=== PATIENT | female | born 1960 | race Caucasian/White ===

== ENCOUNTER → 2018-02-19 | Outpatient (CLI) | payer OTHER ==
[2018-02-19 12:58] LABS: T4, Free (Free Thyroxine) 0.95 ng/dL (0.78-2.19)
== END | disposition home or self-care (01) ==
LOC: LABWHC1 11:36 → MERGE 11:36
PROVIDERS: ATTEND Otolaryngology
DX: E04.1 Nontoxic single thyroid nodule (principal)
CPT/HCPCS: 36415; 84439; 84443; 86376

== ENCOUNTER 2018-03-02 12:41 | Day surgery (SDC) | payer OTHER ==
[2018-03-02 13:14] VITALS: PULSE 62; TEMP 97.6
--- NOTE | 2018-03-02 13:30 | US ---
EXAMINATION TYPE: US thyroid st tissue head/neck DATE OF EXAM: 03/02/2018 COMPARISON: NONE CLINICAL HISTORY: E.04.1 Thyroid. Right sided nodule GLAND SIZE: Right Lobe: 4.7 x 1.8 x 1.4 cm Overall Parenchyma: homogenous Left Lobe: 2.9 x 0.6 x 1.0 cm Overall Parenchyma: homogeneous Isthmus Thickness: 0.2 cm NODULES RIGHT: # of nodules measured on right: 1 1. 1.6 X 1.7 x 1.2 cm hypoechoic solid nodule at the mid pole with well-defined margins. This nodu le is wider than tall and shows intranodular vascularity. Prior size: RECYCLING SPECIALIST LEFT: # of nodules measured on left: 1 1. 0.8 X 0.4 x 0.4 cm hypoechoic solid nodule at the mid pole with well-defined margins. This nodu le is wider than tall and shows intranodular vascularity. Prior size: RECYCLING SPECIALIST ISTHMUS: # of nodules measured in the isthmus: 0 Bilateral neck scanned, no evidence of lymphadenopathy. IMPRESSION: Bilateral thyroid nodules with the largest nodule noted on the right measuring 1.7 cm.
[2018-03-02 14:03] VITALS: BP 131/88; RESP 14
--- NOTE | 2018-03-02 15:58 | US ---
ULTRASOUND GUIDED FNA THYROID BIOPSY: CLINICAL HISTORY: Right thyroid nodule FINDINGS: The procedure was explained to the patient. The risks, complications, benefits and alternatives were discussed and any questions were answered. Informed consent was obtained. Patient was placed supin e on the ultrasound table and prepped and draped in the usual sterile fashion. Utilizing a 25 gauge needle, five passes were made into the requested right thyroid nodule. Patient was stable throughout the procedure. Pathology is pending. All elements of maximal barrier technique were utilized. IMPRESSION: 1. Successful ultrasound guided FNA thyroid biopsy.
== END 2018-03-02 14:07 | disposition home or self-care (01) ==
LOC: RADPROMAIN 12:41
PROVIDERS: ATTEND Otolaryngology
DX: E04.2 Nontoxic multinodular goiter (principal)
CPT/HCPCS: 10022; 76536; 76942; 88173; 88305

== ENCOUNTER 2018-04-19 08:11 | Day surgery (SDC) | payer OTHER ==
[2018-04-16 08:38] VITALS: BMI 17.4
[~2018-04-19 08:11] MED LIST: DEXAMETHASONE SOD PHOSPHATE 10 MG/ML 1 ML VIAL IV ONE; DEXAMETHASONE SOD PHOSPHATE 4 MG/ML 1 ML VIAL IV ONE; FAMOTIDINE 20 MG/2 ML VIAL IV ONE; HYDROmorphone 0.5 MG/0.5 ML SYRINGE IVP PRN; LACTATED RINGERS 1,000 ML IV SCH; MIDAZOLAM 2 MG/2 ML VIAL IV PRN; MORPHINE SULFATE 4 MG/ML SYRINGE IV PRN; ONDANSETRON 4 MG/2 ML VIAL IVP ONE; ceFAZolin 1,000 MG in DEXTROSE/WATER 1 50ML.BAG IV ONE
[2018-04-19] MEDS: OXYMETAZOLINE 0.05% NASL SPRAY 1 SPRAY BOTTLE NASAL ONE ×4 (08:55→09:22)
[2018-04-19 09:08] VITALS: RESP 16
[2018-04-19] MEDS ORDERED: LIDOCAINE 1% 20 ML VIAL (10MG/ML) FOR IV START INTRADERMA ONE (09:08)
[2018-04-19] MEDS: ONDANSETRON 4 MG/2 ML VIAL IVP ONE ×2 (09:13→09:15)
[2018-04-19] MEDS ORDERED: CIPROFLOXACIN-DEXAMETH 0.3-0.1% DROPS 7.5 ML BTL BOTH EARS ONE (09:52)
[2018-04-19] MEDS ORDERED: CIPROFLOXACIN-DEXAMETH 0.3-0.1% DROPS 7.5 ML BTL LEFT EAR ONE (09:52)
[2018-04-19] MEDS ORDERED: BUPIVACAINE (PF) 0.5% 30 ML VIAL SQ ONE ×2 (09:53)
[2018-04-19] MEDS ORDERED: LIDOCAINE 1%-EPI 1:100,000 20 ML VIAL SQ ONE ×3 (09:53)
[2018-04-19] MEDS ORDERED: fentaNYL (PF) 50 MCG/ML 2 ML AMP ONE (09:58)
[2018-04-19] MEDS ORDERED: DEXAMETHASONE SOD PHOS (MDV) 100 MG/10 ML VIAL ONE (09:58)
[2018-04-19] MEDS ORDERED: PROPOFOL 10 MG/ML 20 ML VIAL IV ONE (09:58)
[2018-04-19] MEDS ORDERED: LIDOCAINE 1% INJ 10MG/ML (20 ML MDV) ONE (09:58)
[2018-04-19] MEDS ORDERED: SUCCINYLCHOLINE CHLORIDE 100 MG/5 ML SYR IV ONE (09:58)
[2018-04-19] MEDS ORDERED: MIDAZOLAM 2 MG/2 ML VIAL ONE (09:58)
[2018-04-19 11:04] VITALS: TEMP 96.9
--- NOTE | 2018-04-19 11:13 | P.OP ---
Date of Procedure: 04/19/18 Preoperative Diagnosis: Chronic otitis media with effusion Right drumhead cholesteatoma Conductive hearing loss bilateral Eustachian tube dysfunction Bilateral inferior turbinate hypertrophy with obstruction Postoperative Diagnosis: Same Procedure(s) Performed: Bilateral direct microscopic tympanostomy and tube placement Right myringoplasty Bilateral submucosal resection of the inferior turbinates with outfracturing compression Bilateral endoscopic balloon eustachian tuboplasty Anesthesia: GETA Surgeon: Williams Jorgensen Estimated Blood Loss (ml): 5 Pathology: other (right drumhead cholesteatoma) Condition: stable Disposition: PACU Indications for Procedure: This patient presented to the office with persistent fullness to the right ear with bilateral eustachian tube dysfunction. She does have a persistent eustachian tube dysfunction on both sides but the right side was particularly bad with a [place] incudostapedial pexy. Intraoperatively we did discover a drumhead cholesteatoma that needed to be removed and we repaired this with a myringoplasty. Patient also has large obstructive inferior turbinates that were problematic. And the patient's persistent eustachian tube dysfunction was problematic. Operative Findings: Bilateral middle ear effusion with a right drumhead cholesteatoma with erosion. Patient had large obstructive inferior turbinates and obstructed eustachian tube orifices. Description of Procedure: Prior to surgery, all risks, benefits, and alternative therapies were discussed again with the patient and family. Risks of bleeding, need for second tubes, perforation, early extrusion of tubes, etc. etc. were explained. All questions were answered and a consent was obtained. This patient was taken to the operative room and placed in the supine position. Mask inhalation anesthesia was performed by the department of anesthesia. The patient was monitored throughout the entire case by the department of anesthesia. Both tympanic membranes were visualized with an operating Zeiss microscope. Cerumen and epithelial debris was removed from the external auditory canals bilaterally. The tympanic membranes were visualized under an operative microscope. The right tympanic membrane was severely adhesed to the incudostapedial joint. There was a drumhead cholesteatoma with adhesions noted. We remove the drumhead cholesteatoma there was growing deep under the annulus. This left a perforation. The drumhead was prepped and a graft was placed utilizing a bio design tympanoplasty graft. He was cut to size and placed as an overlay graft. Excellent fitting was obtained. Tympanostomy incisions were made inferiorly. Fluid was suctioned from the middle ear space with use of a #3 and #5 [place] suction with care to avoid any trauma to the middle ear structures. Ventilation tubes were then inserted bilaterally. Excellent placement was obtained. After the nose was decongested, the 0 Bustos star endoscope was inserted into both sides of the nose which extended to the nasopharynx. The eustachian tube orifices were visualized directly and found to be stenotic and inflamed. An Acclarent AERA the station too balloon dilation system device was inserted into both eustachian tube orifices and dilated in the standard fashion. The instrumentation was then removed and the patient tolerated this well. Eustachian tube orifice looked much more open and all adhesions were lysed. Attention was then paid to the inferior turbinates. The bilateral inferior turbinates were hypertrophic and obstructive. We entered the anterior portion of the inferior turbinates with use of a microdebrider. We remove bone and submucosal elements with use of a microdebrider bilaterally. The inferior turbinates underwent a submucosal resection with removal of submucosal tissue and bone. We obtained a much better and normal in size for breathing. The inferior turbinates were then outfractured and compressed with a Boyes nasal elevator. Excellent airway was obtained and was symmetric bilaterally. No bleeding was encountered. Patient was taken to postanesthesia recovery in excellent condition
[2018-04-19 12:12] VITALS: BP 120/81; PULSE 79
== END 2018-04-19 12:24 | disposition home or self-care (01) ==
LOC: OR 08:11
PROVIDERS: ATTEND Otolaryngology
DX: H65.493 Other chronic nonsuppurative otitis media, bilateral (principal); H71.91 Unspecified cholesteatoma, right ear; H90.0 Conductive hearing loss, bilateral; J34.3 Hypertrophy of nasal turbinates; H69.83 Other specified disorders of Eustachian tube, bilateral; Z79.2 Long term (current) use of antibiotics; Z79.899 Other long term (current) drug therapy; Z72.0 Tobacco use
CPT/HCPCS: 88304; 69436; 30140; 69949; C1763; C1726; J2250; J1100 ×2; J2405; J2001; J3010; J0690; J0330; J2704

== ENCOUNTER → 2024-10-07 | Outpatient (CLI) | payer OTHER ==
--- NOTE | 2024-10-12 22:41 | MM ---
Reason for Exam: Screening (asymptomatic). Last mammogram was performed 1 year(s) and 4 month(s) ago. Patient History: Menarche at age 20. First Full-Term at age 21. Postmenopausal. Risk Values: Sandrine 5 year model risk: 1.4%. NCI Lifetime model risk: 5.1%. Prior Study Comparison: 09/05/2019 Bilateral Screening Mammogram, Jeanie Hardy. 09/29/2021 Bilateral Screening Mammogram, Jeanie Hardy. 06/19/2023 Bilateral MG screening mammo w CAD, H. Tissue Density: The breasts are heterogeneously dense, which may obscure small masses. Findings: Analyzed By CAD. The pattern is symmetrical. No significant interval change. No suspicious groups of microcalcifications, spiculated or lobular masses, architectural distortion or other secondary signs of malignancy are mammographically apparent. Overall Assessment: Benign, BI-RAD 2 Management: Screening Mammogram of both breasts in 1 year. A negative mammogram report should not preclude additional follow up of suspicious palpable abnormalities. Patient should continue monthly self breast exam. A clinical breast exam by your physician is recommended on an annual basis and results should be correlated with mammographic findings. Note on Sandrine scores and lifetime risk: 1. A Sandrine score greater than 3% is considered moderate risk. If this is the case, consider specialist referral to assess eligibility for a risk reducing agent. 2. If overall lifetime risk for the development of breast cancer is 20% or higher, the patient may qualify for future screening with alternating mammogram and breast MRI. [facility], , 10/12/2024 10:37 PM. Electronically signed and approved by: Cristóbal Thomason D.O. Radiologis
== END | disposition home or self-care (01) ==
LOC: RADMAMWWP 07:28
PROVIDERS: ATTEND Obstetrics & Gynecology Obstetrics
DX: Z12.31 Encounter for screening mammogram for malignant neoplasm of breast (principal); R92.333 Mammographic heterogeneous density, bilateral breasts; Z78.0 Asymptomatic menopausal state
CPT/HCPCS: 77067

== ENCOUNTER → 2025-03-24 | Outpatient (CLI) | payer OTHER ==
--- NOTE | 2025-03-24 16:31 | CTL ---
EXAMINATION TYPE: CT Low Dose Lung DATE OF EXAM: 03/24/2025 12:29 PM COMPARISON: None. CLINICAL INDICATION: Female, 64 years old with history of Z122 SCREENING [id number] CURR SMOKER, currentl y vapes H/O nodules in bottom right lung, History of tobacco use. Current smoker with 30 pack-year hi story TECHNIQUE: Low dose computed tomography scan was performed through the chest at 1 mm thick sections a nd reconstructed images in multiple planes at 1 mm and [address] DLP: 40.5 mGycm, CT CTDI: 1.1 mGy, Automated exposure control for dose reduction was used. CT DIAGNOSTIC QUALITY: Satisfactory FINDINGS: 1.4 cm hypodense right thyroid lobe nodule can be further evaluated with thyroid ultrasound. Heart normal size. Trace anterior pericardial effusion. Proximal LAD coronary artery calcifications n oted. Ectatic ascending aorta 3.7 cm. Conventional arch vessel branching anatomy. No thoracic lymphadenopathy by CT size criteria. Some strandy atelectasis/scarring at the lower lungs. Additional right greater than left biapical ple ural parenchymal scarring. No consolidation or pleural effusion. * 4 mm lateral right upper lobe pulmonary nodule on axial image 70 * 4 mm anterior left midlung pulmonary nodule, axial image 110. * 5 mm left mid lung pulmonary nodule, axial image 147. Elongated fissural 7 mm pulmonary nodule lef t mid lung indicating a benign etiology, axial image 157. * 3 mm fissural left lower lung pulmonary nodule, axial image 190. * Right midlung pulmonary nodule measuring 6 mm, axial image 151. * 5 mm subpleural pulmonary nodule posteromedial right midlung, axial image 139. * A few scattered benign calcified granulomas, largest measuring 9 mm at the right lung base. There is a tiny hiatal hernia. Visualized upper abdomen otherwise shows no gross abnormality. Bones: Dextroconvex scoliosis thoracic spine. IMPRESSION: 1. LungRADS Category 3 (probably benign, 1-2% chance of malignancy); scattered 7 mm smaller pulmonary nodules on baseline screening. Additional evidence of prior granulomatous disease. 2. 1.5 cm right thyroid lobe nodule can be further evaluated with thyroid ultrasound. 3. Tiny hiatal hernia. Dextroconvex scoliosis. CT LUNG RAD AND CT CHEST RECOMMENDATION: Lung-Rad 3 Probably Benign: 6 month follow-up LDCT. S Modifier (other clinically significant findings): S, thyroid ultrasound for right-sided nodule as a pelon. Recommend smoking cessation. [facility], , 03/24/2025 4:29 PM
== END | disposition home or self-care (01) ==
LOC: RADCTMAIN 11:57
PROVIDERS: ATTEND Family Medicine
DX: Z12.2 Encounter for screening for malignant neoplasm of respiratory organs (principal); F17.210 Nicotine dependence, cigarettes, uncomplicated; K44.9 Diaphragmatic hernia without obstruction or gangrene; E04.1 Nontoxic single thyroid nodule; R91.8 Other nonspecific abnormal finding of lung field; M41.84 Other forms of scoliosis, thoracic region
CPT/HCPCS: 71271

== ENCOUNTER → 2025-06-04 | Outpatient (CLI) | payer OTHER ==
[2025-06-04 15:20] LABS: Basophils # (A) 0.03 X 10*3/uL (0.00-0.10); Basophils % (A) 0.4 %; Eosinophils # (A) 0.15 X 10*3/uL (0.04-0.35); Eosinophils % (A) 1.9 %; HCT 38.9 % (37.2-46.3); HGB 13.1 g/dL (12.0-15.0); Immature Grans, Automated 0.30 %; Lymphocytes # (A) 3.17 X 10*3/uL (0.90-5.00); Lymphocytes % (A) 41.0 %; MCH 30.9 pg (27.0-32.0); MCHC 33.7 g/dL (32.0-37.0); MCV 91.7 FL (80.0-97.0); Monocytes # (A) 0.67 X 10*3/uL (0.20-1.00); Monocytes % (A) 8.7 %; NRBC Per 100 WBC 0 X 10*3/uL (0.00-0.01); Neutrophils # (A) 3.70 X 10*3/uL (1.80-7.70); Neutrophils % (A) 47.7 %; Platelet Count 363 X 10*3/uL (140-440); RBC 4.24 X 10*6/uL (4.10-5.20); RDW 12.7 % (11.5-14.5); WBC 7.74 X 10*3/uL (4.50-10.00)
== END | disposition home or self-care (01) ==
LOC: LABPAT 09:24
PROVIDERS: ATTEND Obstetrics & Gynecology Obstetrics
DX: Z01.812 Encounter for preprocedural laboratory examination (principal)
CPT/HCPCS: 36415; 85025; 93005

== ENCOUNTER 2025-06-09 08:20 | Day surgery (SDC) | payer OTHER ==
[2025-06-05 09:13] VITALS: BMI 18.8
[~2025-06-09 08:20] MED LIST changes: -DEXAMETHASONE SOD PHOSPHATE 10 MG/ML 1 ML VIAL IV ONE; -DEXAMETHASONE SOD PHOSPHATE 4 MG/ML 1 ML VIAL IV ONE; -FAMOTIDINE 20 MG/2 ML VIAL IV ONE; -LACTATED RINGERS 1,000 ML IV SCH; +LIDOCAINE 1% (10MG/ML) FOR IV START INTRADERMA PRN; -MIDAZOLAM 2 MG/2 ML VIAL IV PRN; -MORPHINE SULFATE 4 MG/ML SYRINGE IV PRN; -ONDANSETRON 4 MG/2 ML VIAL IVP ONE; +Pre Op ABX Message 1 EACH MISC MISCELLANE ONE; -ceFAZolin 1,000 MG in DEXTROSE/WATER 1 50ML.BAG IV ONE
[2025-06-09] MEDS: IV FLUID CONTINUATION 1,000 ML IV ONE (08:51)
[2025-06-09] MEDS: ONDANSETRON 4 MG/2 ML VIAL IVP ONE (08:54)
[2025-06-09] MEDS: LACTATED RINGERS 1,000 ML IV SCH (08:54)
[2025-06-09] MEDS: DEXAMETHASONE SOD PHOSPHATE 4 MG/ML 1 ML VIAL IVP STA (08:55)
[2025-06-09 09:01] LABS: Glucose,Whole Blood 81 mg/dL (70-110)
[2025-06-09] MEDS ORDERED: MIDAZOLAM 2 MG/2 ML VIAL ONE (09:31)
[2025-06-09] MEDS ORDERED: PROPOFOL 10 MG/ML 20 ML VIAL IV ONE (09:31)
[2025-06-09] MEDS ORDERED: LIDOCAINE 1% INJ 10MG/ML (20 ML MDV) ONE (09:31)
[2025-06-09] MEDS ORDERED: KETOROLAC 15 MG/ML 1 ML VIAL ONE (09:31)
[2025-06-09] MEDS ORDERED: fentaNYL (PF) 50 MCG/ML 2 ML AMP ONE (09:31)
[2025-06-09] MEDS: LIDOCAINE 1%-EPI 1:100,000 20 ML VIAL SQ ONE (09:45)
--- NOTE | 2025-06-09 10:07 | P.OP ---
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 Operative Findings: During examination under anesthesia the vulva and vagina, and cervix appeared grossly unremarkable. Description of Procedure: Patient was brought back to the operating room where general anesthesia was obtained without difficulty by the anesthesia department. She was prepped and draped in the normal sterile fashion in the dorsal lithotomy position. A red rubber catheter was used to drain the bladder with clear yellow urine. A weighted speculum was placed in the posterior vaginal vault, the cervix was then grasped with a single-tooth tenaculum on the anterior lip. Lidocaine with epinephrine was then used to inject the cervical cervix circumferentially. Angle stitches of 0 Vicryl sutures were placed at 3 and 9:00 in the lateral vaginal fornix is. The scalpel was used to excise a cone shaped biopsy circumferentially around the cervical os. The specimen was removed intact. Bovie cautery was used to obtain hemostasis. Minimal bleeding was appreciated. Stay sutures were excised. Hemostasis was appreciated and all instruments were removed from the patient's vaginal vault.
[2025-06-09 10:08] VITALS: TEMP 97.2
[2025-06-09 10:32] VITALS: RESP 16
[2025-06-09 11:22] VITALS: BP 127/71; PULSE 80
== END 2025-06-09 11:24 | disposition home or self-care (01) ==
LOC: OR 08:20
PROVIDERS: ATTEND Obstetrics & Gynecology Obstetrics
DX: N87.1 Moderate cervical dysplasia (principal); M06.9 Rheumatoid arthritis, unspecified; E07.9 Disorder of thyroid, unspecified; K21.9 Gastro-esophageal reflux disease without esophagitis; F41.9 Anxiety disorder, unspecified; F32.A Depression, unspecified; F17.290 Nicotine dependence, other tobacco product, uncomplicated; Z79.1 Long term (current) use of non-steroidal anti-inflammatories (NSAID); Z79.620 Long term (current) use of immunosuppressive biologic; Z79.899 Other long term (current) drug therapy; Z88.8 Allergy status to other drugs, medicaments and biological substances; Z91.018 Allergy to other foods
CPT/HCPCS: 57520; 88307; J2250; J1100; J2405; J2003; J3010; J1885; J2704